=== PATIENT | male | born 1965 | race Caucasian/White ===

== ENCOUNTER 2021-03-10 16:39 | Inpatient (IN) | payer OTHER ==
[~2021-03-10] VITALS: Ht 170.2 cm; Wt 99.8 kg
[2021-03-10] MEDS ORDERED: FORTAMET500 MG PO (16:55)
[2021-03-10] MEDS ORDERED: HYOSCYAMINE0.125 M2 PO (16:55)
[2021-03-10] MEDS ORDERED: ACID REDUCER20 M1 PO (16:55)
[2021-03-10] MEDS ORDERED: ATORVASTATIN CA40 MG PO (16:55)
[2021-03-10] MEDS ORDERED: KAPSPARGO SPRIN25 MG PO (16:56)
--- NOTE | 2021-03-10 17:02 | NUR ---
PTE MASCULINO ALERTA Y ORIENTADO EN LAS EMIR ESFERAS REFIERE DOLOR ABDOMINAL, DIARREAS Y VARIOS EPISODIOS DE VOMITOS EN EL AGUSTO DE HOY. INDICA SINTOMAS COMENZARON DESDE EL AGUSTO DE JEFFERY LUEGO DE COMERSE UN SANDWICH DE PESCADO.
--- NOTE | 2021-03-10 17:17 | NUR ---
PT ALERTA Y ORIENTADO X3 ESFERAS SE LE ORIENTA SOBRE TX Y REFIERE ENTEDER. SE OPAL MUESTRAS DE ANSELMO Y VENOPUNCION CON TECNICAS ASEPTICAS. SE ADMINISTRAN MEDICAMENTOS ORDENADOS. PT [place]OL[place].
[2021-03-13] MEDS ORDERED: EZETIMIBE10 MG (10:36)
[2021-03-13] MEDS ORDERED: FLONASE16 GM (10:36)
[2021-03-13] MEDS ORDERED: IRBESARTAN-HCT1 EAC1 (10:36)
[2021-03-14] MEDS ORDERED: AMOX1TAB5 PO (09:59)
[2021-03-14] MEDS ORDERED: PROTONIX40 MG PO (09:59)
== END 2021-03-14 13:47 | disposition home or self-care (01) | DRG 343 ==
LOC: ER 16:39 → SURG 19:11 → SEC-K 19:11 → SURG 22:13
PROVIDERS: ADMIT Surgery; ATTEND Surgery
PROC: 0DTJ0ZZ Resection of Appendix, Open Approach (ICD-10-PCS; principal; 2021-03-11)
PROC: 0WJG4ZZ Inspection of Peritoneal Cavity, Percutaneous Endoscopic Approach (ICD-10-PCS; 2021-03-11)
PROC: BW21YZZ Computerized Tomography (CT Scan) of Abdomen and Pelvis using Other Contrast (ICD-10-PCS; 2021-03-13)
DX: K35.890 Other acute appendicitis without perforation or gangrene (principal); I10 Essential (primary) hypertension; E11.9 Type 2 diabetes mellitus without complications

== ENCOUNTER 2022-03-08 20:52 | Emergency (ER) | payer OTHER ==
[~2022-03-08] VITALS: Ht 172.7 cm; Wt 104.3 kg
[~2022-03-08 20:52] MED LIST: ACID REDUCER20 M1 PO; AMOX1TAB5 PO; ATORVASTATIN CA40 MG PO; EZETIMIBE10 MG; FLONASE16 GM; FORTAMET500 MG PO; HYOSCYAMINE0.125 M2 PO; IRBESARTAN-HCT1 EAC1; KAPSPARGO SPRIN25 MG PO; PROTONIX40 MG PO
[2022-03-08] MEDS ORDERED: INVOKANA100 MG PO (21:15)
[2022-03-08] MEDS ORDERED: AMOX-CLAV 500-1 EACH PO (21:16)
[2022-03-09] MEDS ORDERED: ORPHENADRINE C100 MG PO (00:53)
== END 2022-03-09 01:26 | disposition home or self-care (01) ==
LOC: ER 20:52
DX: S29.9XXA Unspecified injury of thorax, initial encounter (principal); W18.30XA Fall on same level, unspecified, initial encounter; Y93.9 Activity, unspecified; Y92.59 Other trade areas as the place of occurrence of the external cause; I10 Essential (primary) hypertension